=== PATIENT | male | born 1950 | race Caucasian/White ===

== ENCOUNTER → 2023-07-19 10:50 | Outpatient (REF) | payer MEDICARE, OTHER, SELFPAY ==
[2023-07-19 11:10] VITALS: BP 139/69; BP_SYST 68
== END ==
LOC: RADI 10:50
PROVIDERS: ATTENDING PHYSICIAN Family Medicine
DX: E04.1 Nontoxic single thyroid nodule (principal)
CPT/HCPCS: 88173; 10005

== ENCOUNTER 2023-11-14 06:24 | Day surgery (SDC) | payer MEDICARE, OTHER, SELFPAY ==
[2023-11-14] VITALS (11 sets, daily range): BP systolic 137–159; BP diastolic 67–79; BMI 29.9
[2023-11-14] MEDS: TYLENOL 1000 MG PO (11:37)
[2023-11-14] MEDS: HEPARIN 5000 UNITS SC (11:38)
[2023-11-14] MEDS: NEURONTIN 300 MG PO (11:38)
[2023-11-14] MEDS: NORMOSOL-R 1000 IV (11:39)
--- NOTE | 2023-11-14 13:56 | OR.RPT ---
Operative Report
Operative Report
PATIENT NAME: Jamey Garza
DATE OF : 1950
DATE OF OPERATION: November 14, 2023
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
POSTOPERATIVE DIAGNOSIS: Same
SURGEON: Kiran Loredo M.D.
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
ANESTHESIA: GET
ESTIMATED BLOOD LOSS: 5 cc
DRAINS: None
SPECIMEN: left thyroid lobe and isthmus
FINDINGS: Left substernal goiter
COMPLICATIONS:�None
PROCEDURE:
The patient was taken to the operating room and placed in the usual supine position. After adequate general endotracheal anesthesia was established, the patient�s neck was extended, prepped, and draped in the typical sterile fashion. A 5 cm
transcervical incision was made two fingerbreadths above the sternal notch. The skin incision was made with the #15 blade, which was taken through the skin into the subcutaneous tissue. The underlying platysma muscle was divided, and subplatysmal
flaps were created superiorly to the thyroid cartilage and inferiorly to the sternal notch. Strap muscles were identified and at the midline.
Attention was turned to the patient�s left thyroid lobe. The left thyroid lobe was mobilized medially. During this process, the left middle thyroid vein and inferior thyroid artery were dissected and ligated with Ligasure. There was a substernal
extension, which was delivered out of the mediastinum through the cervical incision. Next, the left superior pole was taken down by dissecting and transecting the superior pole vessels with a Ligasure. The left thyroid lobe was mobilized medially.
During this process, the left recurrent laryngeal nerve was identified and preserved throughout its entire course. The left superior parathyroid gland identified and preserved. The left thyroid lobe with isthmus was resected off the trachea and sent
to the pathology department.
After obtaining adequate hemostasis, the strap muscle was approximated with #3-0 Vicryl in a running fashion, and platysma muscles were reapproximated with #3-0 Vicryl in an interrupted fashion, and the skin was approximated with #4-0 Monocryl in a
running subcuticular fashion. Steri-strips and sterile dressings were placed. The patient tolerated the procedure well. The final instrument, needle, and sponge counts were correct.
== END 2023-11-14 15:28 | disposition home or self-care (01) ==
LOC: SDS 06:24
PROVIDERS: ATTENDING PHYSICIAN Surgery
DX: D34 Benign neoplasm of thyroid gland (principal); E04.2 Nontoxic multinodular goiter
CPT/HCPCS: 60271; 88307; C9250

== ENCOUNTER → 2024-02-28 11:40 | Outpatient (REF) | payer MEDICARE, OTHER, SELFPAY | LOC: RAD 11:40 | PROVIDERS: ATTENDING PHYSICIAN Nurse Practitioner Adult Health | DX: M79.672 Pain in left foot (principal); M25.572 Pain in left ankle and joints of left foot | CPT/HCPCS: 73610; 73630 ==

== ENCOUNTER 2024-03-27 18:45 | Emergency (ER) | payer MEDICARE, OTHER, SELFPAY ==
[2024-03-27 18:50] VITALS: BP 146/86
[2024-03-27 19:09] LABS: % Basophils 0.2 % (0-2); % Eosinophils 0.1 % (0-6); % Immature Granulocytes 0.6 % (0-0.5); % Lymphocytes 8.4 % (20.5-51.1); % Neutrophils 86.7 % (42.2-75.2); Absolute Immature Granulocytes 0.1 10^3/uL (0-0.05); Absolute Lymphocytes 1.3 10^3/uL (1.2-3.4); Absolute Monocytes 0.6 10^3/uL (0.1-0.6); Absolute Neutrophils 13.9 10^3/uL (1.4-6.5); Hematocrit 32.7 % (39.0-52.0); Hemoglobin 10.3 g/dL (13.0-18.0); Mean Corp Hgb Conc. 31.5 g/dL (33.0-37.0); Mean Corpuscular Hgb 22.6 pg (27.0-31.0); Mean Corpuscular Volume 71.9 fL (80.0-94.0); Mean Platelet Volume 10.2 fL (7.4-10.4); Nucleated Red Blood Cells % 0 % (-); Platelet Count 240 10^3/uL (130-400); Red Blood Cell Count 4.55 10^6/uL (4.70-6.10); Red Cell Dist. Width 17.2 % (11.5-14.5)
[2024-03-27 19:26] LABS: Erythrocyte Sed Rate 45 mm/hour (0-20)
[2024-03-27 19:28] LABS: ALT (SGPT) 23 U/L (0-50); AST (SGOT) 25 U/L (17-59); Albumin 4.2 g/dl (3.5-5.0); Alkaline Phosphatase 75 U/L (38-126); Blood Urea Nitrogen 18 mg/dl (9-20); Calcium 9.5 mg/dl (8.4-10.2); Carbon Dioxide 22 mmol/L (22-30); Chloride 103 mmol/L (98-107); Glucose 142 mg/dl (70-99); Potassium 4.3 mmol/L (3.5-5.1); Sodium 138 mmol/L (135-145); Total Bilirubin 0.3 mg/dl (0.2-1.3); Total Protein 6.7 g/dl (6.3-8.2); eGFR > 60.00
[2024-03-27 20:22] VITALS: BP 157/68
--- NOTE | 2024-03-27 21:04 | ED.GENMED ---
History of Present Illness
General
Chief Complaint: Skin Problem
Source: patient
Exam Limitations: none
Time Seen by Provider: 03/27/24 19:52
Nursing documentation reviewed up to this point in time: agreed with
History of Present Illness
History of Present Illness:
Patient presents to ED secondary to 2-week history of left elbow swelling with redness along with soreness sensation. Patient was initially evaluated at urgent care center and has been on tapered dose of prednisone since then. Denies fever or
chills. Denies nausea or vomiting. Denies loss of sensation or weakness. Denies open wound. Denies trauma. Denies previous history of similar symptoms. Patient is currently not on any antibiotics.
Past History
Past History
ED Past Medical History: Hypercholesterolemia, Other (Kidney stones and gallstones) and Other (Multiple sclerosis)
ED Past Surgical History: Appendectomy and Orthopedic (Cervical laminectomy C4-5)
Social History
Tobacco: Former smoker
Alcohol: Occasional
Drug: None
Personal:
Living: with family
Family History
Family History: Cancer (Breast cancer a sister who came in father); Negative Diabetes, Hypertension, Early CAD or Asthma
Review of Systems
Review of Systems
Allergies reviewed?: Yes
All Other Systems: ROS reviewed and negative except as documented in HPI and ROS
Constitutional: Reports no symptoms
Musculoskeletal: Reports other (elbow redness/swelling)
Skin: Reports other (elbow redness)
Neurological: Reports no symptoms
Phy Exam
Physical Exam
Physical Exam:
Physical Exam
General: no apparent distress, not acutely ill. afebrile
Head: nc/at. eomi
Neck: supple. no meningeal signs. normal posterior pharynx
Neuro: alert and oriented. no focal neurological deficits
Skin: no rash
Psychiatric: well kept. interactive and cooperative
Extremities: no edema. no calf tenderness. negative homans. good distal pulses
Course
Orders/Labs/Results
Orders:
Orders
03/27/24 19:00
C-Reactive Protein Urgent
Complete Blood Count/With Diff Urgent
Comprehensive Metabolic Panel Urgent
Erythrocyte Sed Rate Urgent
03/27/24 20:39
Tetanus/Diphth/Acelpertussis [Adacel] 0.5 ml IM .ONCE ONE
03/27/24 21:08
Cephalexin Monohydrate [Keflex] 500 mg PO NOW STA
Abnormal Lab Results
03/27/24
19:00
WBC 16.0 H 10^3/uL
(4.8-10.8)
RBC 4.55 L 10^6/uL
(4.70-6.10)
Hgb 10.3 L g/dL
(13.0-18.0)
Hct 32.7 L %
(39.0-52.0)
MCV 71.9 L fL
(80.0-94.0)
MCH 22.6 L pg
(27.0-31.0)
MCHC 31.5 L g/dL
(33.0-37.0)
RDW 17.2 H %
(11.5-14.5)
Abs Immat Gran (auto) 0.1 H 10^3/uL
(0-0.05)
Absolute Neuts (auto) 13.9 H 10^3/uL
(1.4-6.5)
Immature Gran % 0.6 H %
(0-0.5)
Neutrophils % 86.7 H %
(42.2-75.2)
Lymphocytes % 8.4 L %
(20.5-51.1)
ESR 45 H mm/hour
(0-20)
Glucose 142 H mg/dl
(70-99)
C-Reactive Protein 143.60 H mg/L
(0.0-10.00)
03/27/24 19:00
03/27/24 19:00
Vital Signs
Initial and Last Documented VS:
Initial Vital Signs
Temp Pulse Resp BP Pulse Ox
97.6 F 110 16 146/86 97
03/27/24 18:50 03/27/24 18:50 03/27/24 18:50 03/27/24 18:50 03/27/24 18:50
Last Documented Vital Signs
Temp Pulse Resp BP Pulse Ox
98.2 F 93 18 157/68 96
03/27/24 20:22 03/27/24 20:22 03/27/24 20:22 03/27/24 20:22 03/27/24 20:22
MDM/Problems Addressed
MDM/Problems Addressed:
Discussed with on-call orthopedic surgeon, Dr. Navarrete, who visualized patient's elbow via [place] text. As patient is afebrile, hemodynamically stable, and nontoxic-appearing, feels the patient can be discharged home on oral antibiotics. Patient
will follow-up with Dr. Navarrete as an outpatient.
*Critical Care Note
Total Time (30-74mins, 75-104mins- exclusive of procedures): Not Applicable
ED Attending Note
-
Portions of this chart may have been created with voice recognition software.� Occasional wrong word or��sound alike� substitutions may have occurred due to the inherent limitations of voice recognition software.
Discharge Plan
Departure
Patient Disposition: Home (Routine Discharge)
Date of Disposition: 03/27/24
Time of Disposition: 21:09
Patient with high blood pressure during this ER visit?: Yes
Condition: Good
Discharge Problem:
Bursitis of left elbow
Instructions: Bursitis (DC), Cellulitis (Skin Infection), Adult ED
Prescriptions:
New
cephalexin 500 mg capsule
500 mg PO Q8H Qty: 20 0RF
No Action
multivitamin 1 EACH tablet
1 ea PO DAILY
aspirin 81 MG tablet,delayed release (DR/EC)
81 mg PO DAILY
simvastatin 40 MG tablet
40 mg PO DAILY
ascorbic acid (vitamin C) [Vitamin C] 500 MG tablet
500 mg PO DAILY
garlic 400 MG tablet
400 mg PO DAILY
cholecalciferol (vitamin D3) 2,000 UNITS tablet
4,000 unit PO DAILY
glatiramer [Copaxone] 40 MG/ML syringe
40 mg SQ .3XSWEEK
Biotin
2,000 mcg PO DAILY
cyanocobalamin (vitamin B-12) [Vitamin B-12] 2,000 mcg Tablet Extended Release
2,000 mcg PO DAILY
enalapril maleate 20 mg Tablet
20 mg PO DAILY
omeprazole 20 mg Tablet,Delayed Release (Dr/Ec)
20 mg PO DAILY
sildenafil 25 mg Tablet
25 mg PO PRN (Reason: prn)
coenzyme Q10 [Co Q-10] 200 mg Capsule
200 mg PO DAILY
Referrals:
Magdi Lehman Jr., DO [Family Provider] -
Dilshad Navarrete MD [Active] -
Activity Restrictions/Additional Instructions:
As discussed, please follow-up with referred orthopedic surgeon for reevaluation. Your prescription has been sent electronically to [facility] in [place].
Interventions
Interventions:
*Risk Screen - Suicide Last Done: 03/27/24 20:21
*General Assessment Last Done: 03/27/24 20:17
*Neglect/Abuse Screening Last Done: 03/27/24 20:17
*ED COVID-19 Vaccine History Last Done: 03/27/24 20:17
*Nursing Disposition Last Done: 03/27/24 21:29
ED-Skin Assessment Last Done: 03/27/24 20:56
Discharge Date and Time
Discharge Date/Time: 03/27/24 21:29
Print Language: CZECH
[2024-03-27] MEDS: KEFLEX 500 MG PO (21:26)
== END 2024-03-27 21:29 | disposition home or self-care (01) ==
LOC: EMR 18:45
PROVIDERS: Emergency Medicine; EMERGENCY PHYSICIAN Emergency Medicine; FAMILY PHYSICIAN Family Medicine
DX: M70.32 Other bursitis of elbow, left elbow (principal); E78.00 Pure hypercholesterolemia, unspecified; G35 Multiple sclerosis; Z87.891 Personal history of nicotine dependence
CPT/HCPCS: 99283; 80053; 85025; 85652; 86140

== ENCOUNTER → 2024-06-14 11:01 | Outpatient (REF) | payer MEDICARE, OTHER, SELFPAY | LOC: HWRAD 11:01 | PROVIDERS: ATTENDING PHYSICIAN Family Medicine | DX: M54.50 Low back pain, unspecified (principal) | CPT/HCPCS: 72110 ==

== ENCOUNTER → 2024-07-24 06:33 | Outpatient (REF) | payer MEDICARE, OTHER, SELFPAY | LOC: MRI 06:33 | PROVIDERS: ATTENDING PHYSICIAN Physical Medicine & Rehabilitation; FAMILY PHYSICIAN Family Medicine | DX: M54.16 Radiculopathy, lumbar region (principal) | CPT/HCPCS: 72148 ==

== ENCOUNTER 2024-09-12 06:21 | Day surgery (SDC) | payer MEDICARE, OTHER, SELFPAY | END 2024-09-12 13:00 | disposition home or self-care (01) | LOC: GI 06:21 | PROVIDERS: ATTENDING PHYSICIAN Specialist; FAMILY PHYSICIAN Family Medicine | DX: Z12.11 Encounter for screening for malignant neoplasm of colon (principal); K29.80 Duodenitis without bleeding; K29.50 Unspecified chronic gastritis without bleeding; K31.7 Polyp of stomach and duodenum; K31.89 Other diseases of stomach and duodenum; D50.9 Iron deficiency anemia, unspecified; R12 Heartburn | CPT/HCPCS: 43239; G0105; 88305; 88342 ==